=== PATIENT | female | born 1980 | race Caucasian/White ===

== ENCOUNTER 2020-10-06 13:26 | Outpatient (REF) | payer MEDICAID, SELFPAY | END 2020-10-06 13:27 | disposition home or self-care (01) | LOC: HO.LAB 13:26 | PROVIDERS: Visit Provider Internal Medicine | DX: Z20.822 Contact with and (suspected) exposure to COVID-19 (principal) | CPT/HCPCS: 36415; C9803; U0003; U0005 ==

== ENCOUNTER 2021-11-14 18:48 | Emergency (ER) | payer MEDICAID, SELFPAY ==
[2021-11-14 18:51] VITALS: BP 145/99; PULSE 98; RESP 18; TEMP 36.4; O2SAT 100; BMI 17.4
--- NOTE | 2021-11-14 19:16 | ED.BACK ---
HPI - Back Pain/Injury General Chief Complaint: Back Pain/Injury Stated Complaint: Back injury Time Seen by Provider: 11/14/21 19:16 Source: patient Mode of arrival: ambulatory Limitations: no limitations History of Present Illness HPI Narrative: Patient is a 41 year old female presenting to the emergency department today with low back pain. Patient states that she lifted something heavy last Tuesday night and has been having pain in her low back that radiates into her right leg ever since. Patient denies any dizziness, lightheadedness, abdominal pain, nausea, vomiting, fever, chills, blurry vision, double vision, loss of vision, chest pain, difficulty breathing, shortness of breath, night sweats, pain with urination, increased urinary frequency, increased urinary urgency, blood in her urine or stool, syncope or a near syncopal episode, recent trauma or falls, bowel incontinence, bladder incontinence, bowel retention, bladder retention, or any other complaints at this time. MD elicited complaint: back pain Onset (ago): day(s) Timing: constant Severity: mild Pain scale (0-10): 4 Similar Symptoms Previously: No Quality: dull Location: lumbar spine Exacerbating factors: none Relieving factors: none Context: while lifting Associated symptoms: denies other symptoms Work related injury: No Related Data Previous Rx's Medication Instructions Recorded cyclobenzaprine 10 mg tablet 10 mg PO TID PRN 7 Days #21 tab 11/14/21 naproxen 500 mg tablet 500 mg PO BID PRN #14 tab 11/14/21 Allergies Allergy/AdvReac Type Severity Reaction Status Date / Time bees Allergy Unknown Uncoded 03/10/18 00:00 Benadryl Allergy Unknown Uncoded 03/10/18 00:00 Review of Systems Constitutional: Constitutional: Reports no additional constitutional complaints, Denies chills, Denies fever(s) and Denies night sweats Eyes: Eyes: Reports no additional eye complaints, Denies blurry vision, Denies change in vision, Denies diplopia, Denies eye discharge, Denies loss of vision and Denies eye pain ENT: Denies dizziness Cardiovascular: Cardiovascular: Reports no additional cardiovascular complaints, Denies chest pain, Denies lightheadedness, Denies Loss of Consciousness and Denies dyspnea Respiratory: Respiratory: Reports no additional respiratory complaints and Denies dyspnea Gastrointestinal: Gastrointestinal: Reports no additional gastrointestinal complaints, Denies abdominal pain, Denies melena, Denies hematochezia, Denies change in bowel habits and Denies change in stool character Genitourinary: Genitourinary: Denies hematuria, Denies urinary frequency, Denies dysuria, Denies urinary incontinence, Denies urinary hesitancy and Denies urinary urgency Musculoskeletal: Musculoskeletal: Reports no additional musculoskeletal complaints, Reports back pain, Denies numbness and Denies tingling Neurologic: Denies dizziness, Denies loss of vision, Denies numbness and Denies tingling Psychiatric: Psychiatric: Reports no additional psychiatric complaints Endocrine: Endocrine: Reports no additional endocrine complaints Hematologic/Lymphatic: Hematologic/Lymphatic: Reports no additional hematologic/lymphatic complaints Allergic/Immunologic: Allergic/Immunologic: Reports no additional allergic/immunologic complaints PMFSH Past Medical History Attestation statement: The following information was validated with the patient. Source: old records reviewed Social History Social History Advance Directives: No Advance Directives Information Provided: No Patient : No Physical Exam Vital Signs: Vital Signs: Last Vital Signs Temp 97.5 F 11/14/21 18:51 Pulse 98 11/14/21 18:51 Resp 18 11/14/21 18:51 BP 145/99 H 11/14/21 18:51 Pulse Ox 100 11/14/21 18:51 BMI result Body Mass Index 17.4 Const: General: cooperative, no acute distress, alert and awake Nutritional Appearance: well nourished Orientation/consciousness: patient oriented x3 Limitations: no limitations HEENT: Head: Yes normal to inspection and Yes atraumatic Ears: hearing grossly normal bilaterally and external ears normal General nose exam: Normal external nose present, no nasal discharge noted and no epistaxis Face and sinus: Yes normal facial exam, No abrasion and No laceration Mouth: Normal oral and palatal mucosa present, no drooling and no muffled voice Eyes: General: appearance normal, both eyes and all related structures Periorbital: periorbital findings normal Eyelids: Yes eyelids normal Conjunctivae: conjunctivae normal Pupils: Equal, round and reactive pupils present EOM: EOMs intact bilaterally Neck: Neck: Yes normal visual inspection, Yes full ROM and Yes no lymphadenopathy Chest: Chest palpation & inspection: normal inspection of the chest Resp: Effort & Inspection: normal respiratory effort and able to speak in complete sentences Auscultation: clear to auscultation bilaterally Cardio: Rate: regular rate Rhythm: regular rhythm GI: Inspection: Yes normal to inspection : General: Yes no CVA tenderness Back/Spine/Pelvis: Back: no CVA tenderness Cervical Spine: normal cervical lordosis and cervical ROM normal Thoracic/Lumbar Spine: thoracic and lumbar spine normal to inspection and thoraco-lumbar ROM normal Pelvis: no pain with anterior-posterior compression and no pain with lateral compression Neuro: General: patient oriented x3 and moves all extremities Cranial nerves: Yes Equal, round and reactive pupils present Cognition (Neuro): normal cognition Motor exam (neuro): 5/5 motor strength present throughout Sensory Exam: Normal double simultaneous stimulation for sensation Coordination: [id number] test normal Extrem: General: Yes normal to inspection, Yes full ROM and Yes capillary refill normal Psych: Appearance: grossly normal Mental Status: mental status grossly normal Affect: normal affect Attitude: cooperative Thought process: Normal thought process present Thought content: Normal thought content present Insight: Good insight present (Psych) MDM - Back Pain/Injury MDM Narrative Medical decision making narrative: Patient is a 41 year old female presenting to the emergency department today with low back pain. Patient's physical exam was unremarkable. I explained my physical exam findings to the patient. I answered all questions asked by the patient. Patient received PO Flexeril and IM Toradol which she stated helped her symptoms significantly. I stressed the importance of the patient taking her medication as prescribed. I stressed the importance of the patient following up with her primary care provider. I stressed the importance of the patient returning to the emergency department immediately if her symptoms were to worsen or if she were to develop any dizziness, shortness of breath, difficulty breathing, chest pain, blurry vision, loss of vision, nausea, vomiting, abdominal pain, fever, chills, back pain, or any other complaints. Patient verbalized agreement and understanding with this treatment plan and discharge. Differential Diagnosis Differential diagnosis: Likely lumbar radiculopathy, sciatica and strain of lumbar region Medical Records Attestation: I reviewed the patient's medical records. Discharge Plan Discharge Clinical Impression: Strain of lumbar region Patient Disposition: Home, Self-Care Instructions: Acute Low Back Pain (ED) Additional Instructions: Follow up with your primary care provider. Return to the emergency department immediately if your symptoms worsen or if you develop any dizziness, shortness of breath, difficulty breathing, chest pain, blurry vision, loss of vision, nausea, vomiting, abdominal pain, fever, chills, back pain, or any other complaints. Prescriptions: New cyclobenzaprine 10 mg tablet 10 mg PO TID PRN (Reason: muscle spasm) 7 Days Qty: 21 0RF naproxen 500 mg tablet 500 mg PO BID PRN (Reason: pain) Qty: 14 0RF [place] [facility] [place] [facility] [place] [facility] [place]] [facility] [place] [facility] [place]] Stand Alone Forms: Work/School Release Interventions: ED Discharge Assessment Last Done: 11/14/21 19:47 Print Language: [place] Islander
[2021-11-14] MEDS: Cyclobenzaprine HCl 10 MG TABLET PO (19:39)
[2021-11-14] MEDS: Ketorolac Tromethamine 30 MG/ML VIAL IM (19:39)
== END 2021-11-14 19:49 | disposition home or self-care (01) ==
PROVIDERS: Emergency Provider Emergency Medicine Emergency Medical Services; PCP Internal Medicine Nephrology
DX: S39.012A Strain of muscle, fascia and tendon of lower back, initial encounter (principal); X50.0XXA Overexertion from strenuous movement or load, initial encounter; Y93.9 Activity, unspecified; Y92.9 Unspecified place or not applicable; Y99.9 Unspecified external cause status; Z79.899 Other long term (current) drug therapy
CPT/HCPCS: 96372; 99284; J1885

== ENCOUNTER 2021-12-04 17:25 | Emergency (ER) | payer MEDICAID, SELFPAY ==
[2021-12-04 17:35] VITALS: BP 127/80; PULSE 98; RESP 19; TEMP 36.6; O2SAT 100; BMI 17.9
--- NOTE | 2021-12-04 18:03 | ED_ITS ---
HPI - General Adult General Chief complaint: Back Pain/Injury Stated complaint: back INJ/work related Time Seen by Provider: 12/04/21 18:03 Source: patient Mode of arrival: ambulatory Limitations: no limitations History of Present Illness HPI narrative: Patient is a 41 year old female presenting to the emergency department today with right sided low back pain that radiates down her right leg. Patient states that that she was seen here a month ago for this, given medication that made it better, and then she went back to work and it got worse. 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 Patient states that she was sent here from the urgent care for an MRI. Patient denies any dizziness, lightheadedness, abdominal pain, nausea, vomiting, fever, chills, blurry vision, double vision, loss of vision, chest pain, difficulty breathing, shortness of breath, night sweats, pain with urination, increased urinary frequency, increased urinary urgency, blood in her urine or stool, syncope or a near syncopal episode, recent trauma or falls, bowel incontinence, bladder incontinence, bowel retention, bladder retention, or any other complaints at this time. Onset (ago): day(s) Location: back Radiation: extremity Severity: mild Severity scale (1-10): 4 Quality: dull Pain Consistency: intermittent Relieving factors: none Exacerbating factors: none Associated symptoms: denies other symptoms Treatments prior to arrival: none Related Data Previous Rx's Medication Instructions Recorded cyclobenzaprine 10 mg tablet 10 mg PO TID PRN 7 Days #21 tab 11/14/21 naproxen 500 mg tablet 500 mg PO BID PRN #14 tab 11/14/21 cyclobenzaprine 10 mg tablet 10 mg PO TID PRN 7 Days #21 tab 12/04/21 Allergies Allergy/AdvReac Type Severity Reaction Status Date / Time bees Allergy Unknown Uncoded 03/10/18 00:00 Benadryl Allergy Unknown Uncoded 03/10/18 00:00 Review of Systems Constitutional: Constitutional: Reports no additional constitutional complaints, Denies chills, Denies fever(s) and Denies night sweats Eyes: Eyes: Reports no additional eye complaints, Denies blurry vision, Denies change in vision, Denies diplopia, Denies eye discharge, Denies loss of vision and Denies eye pain ENT: Denies dizziness Cardiovascular: Cardiovascular: Reports no additional cardiovascular complaints, Denies chest pain, Denies lightheadedness, Denies Loss of Consciousness and Denies dyspnea Respiratory: Respiratory: Reports no additional respiratory complaints and Denies dyspnea Gastrointestinal: Gastrointestinal: Reports no additional gastrointestinal complaints, Denies abdominal pain, Denies melena, Denies hematochezia, Denies change in bowel habits and Denies change in stool character Genitourinary: Genitourinary: Denies hematuria, Denies urinary frequency, Denies dysuria, Denies urinary incontinence, Denies urinary hesitancy and Denies urinary urgency Musculoskeletal: Musculoskeletal: Reports no additional musculoskeletal complaints, Reports back pain, Denies numbness and Denies tingling Neurologic: Denies dizziness, Denies loss of vision, Denies numbness and Denies tingling Psychiatric: Psychiatric: Reports no additional psychiatric complaints Endocrine: Endocrine: Reports no additional endocrine complaints Hematologic/Lymphatic: Hematologic/Lymphatic: Reports no additional hematologic/lymphatic complaints Allergic/Immunologic: Allergic/Immunologic: Reports no additional allergic/immunologic complaints [facility] Past Medical History Attestation statement: The following information was validated with the patient. Source: old records reviewed Social History Social History Advance Directives: No Advance Directives Information Provided: No Physical Exam ED Vital Signs: Vital Signs - 24 hr 12/04/21 17:35 Temperature 98 F Pulse Rate 98 Respiratory Rate 19 Blood Pressure 127/80 Pulse Oximetry 100 BMI result Body Mass Index 17.9 Const General: cooperative, no acute distress, alert and awake Nutritional Appearance: well nourished Orientation/consciousness: patient oriented x3 Limitations: no limitations [facility] Head: Yes normal to inspection and Yes atraumatic Ears: hearing grossly normal bilaterally and external ears normal General nose exam: Normal external nose present, no nasal discharge noted and no epistaxis Face and sinus: Yes normal facial exam, No abrasion and No laceration Mouth: Normal oral and palatal mucosa present, no drooling and no muffled voice Eyes General: appearance normal, both eyes and all related structures Periorbital: periorbital findings normal Eyelids: Yes eyelids normal Conjunctivae: conjunctivae normal Pupils: Equal, round and reactive pupils present EOM: EOMs intact bilaterally Neck Neck: Yes normal visual inspection, Yes full ROM and Yes no lymphadenopathy Chest Chest palpation & inspection: normal inspection of the chest Resp Effort & Inspection: normal respiratory effort and able to speak in complete sentences Auscultation: clear to auscultation bilaterally Cardio Rate: regular rate Rhythm: regular rhythm GI Inspection: Yes normal to inspection General: Yes no CVA tenderness Back/Spine/Pelvis Back: no CVA tenderness Cervical Spine: normal cervical lordosis and cervical ROM normal Thoracic/Lumbar Spine: thoracic and lumbar spine normal to inspection and thoraco-lumbar ROM normal Pelvis: no pain with anterior-posterior compression Neuro General: patient oriented x3 and moves all extremities Cranial nerves: Yes Equal, round and reactive pupils present Cognition (Neuro): normal cognition Motor exam (neuro): 5/5 motor strength present throughout Sensory Exam: Normal double simultaneous stimulation for sensation Coordination: [id number] test normal Extrem General: Yes normal to inspection, Yes full ROM and Yes capillary refill normal Psych Appearance: grossly normal Mental Status: mental status grossly normal Affect: normal affect Attitude: cooperative Thought process: Normal thought process present Thought content: Normal thought content present Insight: Good insight present (Psych) Medical Decision Making [facility] Narrative Medical decision making narrative: Patient is a 41 year old female presenting to the emergency department today with back pain. Patient's physical exam was unremarkable. I explained my physical exam findings to the patient. I answered all questions asked by the patient. I explained to the patient that we do not do routine MRIs in the emergency department and that she needs to follow up with orthopedics. Patient received IM Toradol and PO Flexeril which she stated helped her symptoms significantly. I stressed the importance of the patient taking her medication as prescribed. I stressed the importance of the patient following up with her primary care provider and an orthopedist. I stressed the importance of the patient returning to the emergency department immediately if her symptoms were to worsen or if she were to develop any dizziness, shortness of breath, difficulty breathing, chest pain, blurry vision, loss of vision, nausea, vomiting, abdominal pain, fever, chills, back pain, or any other complaints. Patient verbalized agreement and understanding with this treatment plan and discharge. Differential Diagnosis Differential Diagnosis: sciatica Medical Records Medical records reviewed: Yes I reviewed the patient's medical records. Discharge Plan Discharge Clinical Impression: Sciatica Patient Disposition: Home, Self-Care Instructions: Back Pain (ED) Additional Instructions: Follow up with your primary care provider. Return to the emergency department immediately if your symptoms worsen or if you develop any dizziness, shortness of breath, difficulty breathing, chest pain, blurry vision, loss of vision, nausea, vomiting, abdominal pain, fever, chills, back pain, or any other complaints. Prescriptions: New cyclobenzaprine 10 mg tablet 10 mg PO TID PRN (Reason: muscle spasm) 7 Days Qty: 21 0RF No Action cyclobenzaprine 10 mg tablet 10 mg PO TID PRN (Reason: muscle spasm) 7 Days Qty: 21 0RF naproxen 500 mg tablet 500 mg PO BID PRN (Reason: pain) Qty: 14 0RF Ref[place]: [facility] [place] [facility] [Provider Group] (Follow up with an orthopedic provider. ) Stand Alone Forms: Work/School Release Interventions: ED Discharge Assessment Last Done: 12/04/21 18:56 Discharge Date/Time: 12/04/21 18:57 Print Language: [place]
[2021-12-04] MEDS: Ketorolac Tromethamine 15 MG/ML VIAL IM (18:51)
[2021-12-04] MEDS: Cyclobenzaprine HCl 10 MG TABLET PO (18:52)
== END 2021-12-04 18:57 | disposition home or self-care (01) ==
PROVIDERS: Emergency Provider Internal Medicine; PCP Internal Medicine Medical Oncology
DX: M54.41 Lumbago with sciatica, right side (principal)
CPT/HCPCS: 96372; 99282; 99284; J1885

== ENCOUNTER 2022-01-04 18:52 | Emergency (ER) | payer MEDICAID, SELFPAY ==
[2022-01-04 19:00] VITALS: BP 128/70; PULSE 100; O2SAT 97
--- NOTE | 2022-01-04 19:04 | ED_ITS ---
HPI - Overdose General Chief Complaint: Overdose Stated Complaint: FOUND UNRESP IN CAR, NARCAN GIVEN W/GOOD RESULT Time Seen by Provider: 01/04/22 19:04 Source: patient and EMS Mode of arrival: EMS Limitations: no limitations History of Present Illness HPI Narrative: This is a 41-year-old female history of opiate use disorder presenting to the emergency department with concerns of an unintentional opiate overdose. Patient tells me that she started a recovery program 5 years ago, she last relapsed June 2021, she tells me today was an accidental overdose, reports using 1 bag of IV heroin. Patient tells me that she has been having a lot of significant life stressors, today is the 1 year anniversary of 1 of her family members dying, she tells me in 6 days it is the end ever see of another family member dying. She also reports that last week she was told she should receive testing to make sure that she does not have lung cancer. Patient tells me that she feels like all this triggered her to use. She tells me she has no desire to use anymore. In fact, she tells me she would like to go to [place] for a meeting [facility] for detox. She tells me she goes to these meetings often instead she did relapse today she would like to go because this is her support system. Patient also tells me that she is close with her sister who is here and can take patient home. She was given 4 mg of intranasal Narcan by EMS. Denies SI and HI. Tells me she has a slight headache which she always gets after she receives Narcan. No other medical complaints at this time. Denies chest pain, shortness of breath, nausea, vomiting, vision changes, dizziness, weakness. At this time she does not want to me with the care team in have a substance use disorder evaluation, patient detox he tells me that she good resources in the community and she is currently involved with detox. MD complaint: accidental overdose Onset (ago): hour(s) (1) Timing confirmed by: other (EMS) Related Data Previous Rx's Medication Instructions Recorded cyclobenzaprine 10 mg tablet 10 mg PO TID PRN muscle spasm 7 11/14/21 days #21 tabs naproxen 500 mg tablet 500 mg PO BID PRN pain #14 tabs 11/14/21 cyclobenzaprine 10 mg tablet 10 mg PO TID PRN muscle spasm 7 12/04/21 days #21 tabs naloxone 4 mg/actuation nasal 4 mg intranasal Q2M PRN opioid 01/04/22 spray (Narcan) overdose #2 ea Allergies Allergy/AdvReac Type Severity Reaction Status Date / Time bees Allergy Unknown Uncoded 03/10/18 00:00 Benadryl Allergy Unknown Uncoded 03/10/18 00:00 Review of Systems Review of Systems: Constitutional : No Fever, No Chills ENT/Mouth : No sore throat, No Rhinorrhea Eyes: No Eye Pain, No Swelling, No Redness Cardiovascular : No Chest Pain, No SOB Respiratory : No Cough, No Sputum Gastrointestinal : No Nausea, No Vomiting, No Diarrhea, No abdominal Pain Genitourinary : No Dysuria, No Hematuria Musculoskeletal : No joint pain, No Myalgias, No Joint Swelling Skin : No Skin Lesions, No rash Neuro : No Weakness, No Numbness, + headache Psych : No Anxiety, No Depression, No SI/HI/AH/VH Heme/Lymph: No Bruising, No Bleeding Endocrine : No Polyuria, No Polydipsia All other systems reviewed and are negative Yes all other systems are reviewed and are negative [facility] Past Medical History Attestation statement: The following information was validated with the patient. Source: old records reviewed and nursing notes reviewed Social History Social History Alcohol intake: former Patient Tobacco Use Status: Current everyday Tobacco user Smoked in Last 30 Days: Yes Use of substances other than those prescribed or required for medical reasons: Yes Substance Use Type: Crack/Cocaine and Heroin Last Used Substance: Hours (ago) Advance Directives: No Advance Directives Information Provided: No Patient : No Physical Exam Vital Signs: Vital Signs: Last Vital Signs Temp 98.2 F 01/04/22 19:52 Pulse 91 01/04/22 19:52 Resp 14 01/04/22 19:52 BP 144/83 H 01/04/22 19:52 Pulse Ox 100 01/04/22 19:52 O2 Del Method 01/04/22 19:52 BMI result Body Mass Index 18.6 VSS Appearance: Alert.? Oriented X3.? No acute distress.? Head: Normocephalic, atraumatic, no step-offs or deformities Eyes: Pupils equal, round and reactive to light.? ENT: Pharynx normal.? Neck: Normal inspection.? Neck supple.? CVS: Normal heart rate and rhythm.? Pulses normal.? Respiratory: No respiratory distress.? Breath sounds normal.? Abdomen: Soft and nontender.? Skin: Skin warm and dry.? Normal skin color.? Normal skin turgor.? Extremities: No lower extremity edema.? No calf ttp. 5/5 strength to bilateral upper and lower extremities Back: No midline tenderness, no C-spine tenderness, full range of motion, no CVA tenderness bilaterally Neuro: Oriented X 3.? No motor deficit.? No sensory deficit. CN 2-12 intact. Steady tandem gait with normal coordination. Course Reevaluation(s) Reevaluation #1: Urine positive for opiates, fentanyl, amphetamines, cocaine and marijuana. Patient awake, alert and oriented x4, ambulating with steady gait. Stable vital signs. Patient does not want to speak to care team, no medical complaints. Was given something for her headache. At this time patient will be discharged, patient tells me she is going to recovery group meeting today. Time: 20:09 MDM - Overdose [facility] Narrative Medical decision making narrative: 1911 41-year-old female presents with unintentional opiate overdose, patient was clean for a while and relapsed today, reports a lot of significant life stressors. Denies SI HI. Looking to go to a detox meeting [facility] at [facility]. Patient received 4 mg of intranasal Narcan via. Physical examination benign. Pleasant 41-year-old female. Regular rate and rhythm. Lungs clear. Abdomen soft nontender nondistended. Plan at this time is [facility] and observation. Medical Records Attestation: I reviewed the patient's medical records. Lab Data Attestation: I reviewed the patient's lab results. Critical Care Time Critical Care Time Critical Care Time: No Discharge Plan Discharge Clinical Impression: Opiate overdose, Polysubstance abuse Patient Disposition: Home, Self-Care Instructions: Naloxone (Into the nose) Additional Instructions: Take your medications as prescribed. If you were prescribed antibiotics today, it is important that you take your medication to their entirety, do not skip any doses, do not finish them early. Follow-up with your primary care provider this week. Please go to your recovery group bruna. Follow-up with the behavioral health team. Return to the emergency department with new or worsening symptoms. Such as fevers, chills, chest pain, shortness of breath, nausea, vomiting, dizziness, headache, vision changes, lethargy, anxiety, depression, suicidal ideation, homicidal ideation. In case of emergency call 911 Your urine was positive for opiates, fentanyl, amphetamines, cocaine, marijuana. Prescriptions: New naloxone [Narcan] 4 mg/actuation spray,non-aerosol 4 mg intranasal Q2M PRN (Reason: opioid overdose) Qty: 2 0RF Rx Instructions: spray 1 dose into ONE nostril; alternate nostrils w each dose until help arrives No Action cyclobenzaprine 10 mg tablet 10 mg PO TID PRN (Reason: muscle spasm) 7 Days Qty: 21 0RF naproxen 500 mg tablet 500 mg PO BID PRN (Reason: pain) Qty: 14 0RF cyclobenzaprine 10 mg tablet 10 mg PO TID PRN (Reason: muscle spasm) 7 Days Qty: 21 0RF [facility]Provider Group[facility] - 2 days America Sky MD [Primary Care Provider] - 2 days
[2022-01-04 19:25] VITALS: BP 140/81; PULSE 93; RESP 16; TEMP 36.7; O2SAT 100; BMI 18.6
[2022-01-04 19:52] VITALS: BP 144/83; PULSE 91; RESP 14; TEMP 36.8; O2SAT 100
[2022-01-04] MEDS: Acetaminophen 325 MG TABLET 650 MG PO (19:59)
--- NOTE | 2022-01-04 20:02 | PC.NURSE ---
medicated per provider order.
[2022-01-04 20:08] LABS: Amphetamine Screen Urine POSITIVE (Not Detect); Barbiturates, Urine Not Detected (Not Detect); Benzodiazepines Screen Urine Not Detected (Not Detect); Cannabinoid Screen Urine POSITIVE (Not Detect); Cocaine Screen Urine POSITIVE (Not Detect); Fentanyl, urine POSITIVE (Not Detect); Opiate Screen Urine POSITIVE (Not Detect); Phencyclidine Screen Urine Not Detected (Not Detect)
== END 2022-01-04 20:38 | disposition home or self-care (01) ==
PROVIDERS: Physician Assistant; Emergency Provider Internal Medicine; PCP Internal Medicine Medical Oncology
DX: T40.1X1A Poisoning by heroin, accidental (unintentional), initial encounter (principal); F19.10 Other psychoactive substance abuse, uncomplicated; Y92.810 Car as the place of occurrence of the external cause
CPT/HCPCS: 80307; 99284

== ENCOUNTER 2023-01-31 20:07 | Emergency (ER) | payer MEDICAID, SELFPAY ==
[2023-01-31 20:12] VITALS: BP 150/94; BP 158/62; PULSE 110; PULSE 113; RESP 20; TEMP 37.1; O2SAT 95; O2SAT 97; BMI 17.7
--- NOTE | 2023-01-31 20:26 | PC.NURSE ---
Assumed care of pt. Pt stand and pivot to stretcher with no difficulties. Pt very restless, unable to sit still for most of exam. Able to be redirected. MD Hodges made aware. Preparing for IV and medications.
--- NOTE | 2023-01-31 20:30 | ED_ITS ---
HPI - Alcohol General Chief Complaint: ETOH/Substance Use Stated Complaint: ETOH Time Seen by Provider: 01/31/23 20:28 Source: patient Mode of arrival: ambulatory Limitations: no limitations History of Present Illness HPI narrative: Patient alcoholic been drinking heavily lately did not take her medication for last 5 days dad 2 days ago and since then been drinking heavily drink was earlier today want to stop drinking patient feel depressed tearful in the ER denied any SI Related Data Home Medications Medication Instructions Recorded Confirmed diazepam 5 mg tablet 5 mg PO BID 01/31/23 01/31/23 lisdexamfetamine 60 mg capsule 60 mg PO QAM 01/31/23 01/31/23 (Vyvanse) lorazepam 0.5 mg tablet 0.5 - 1 mg PO DAILY PRN Anxiety 01/31/23 01/31/23 meloxicam 15 mg tablet mg PO 01/31/23 naltrexone 50 mg tablet 50 mg PO DAILY PRN Restless Leg(S) 01/31/23 01/31/23 oxcarbazepine 300 mg tablet 300 mg PO BID 01/31/23 01/31/23 pregabalin 100 mg capsule 100 mg PO BID 01/31/23 01/31/23 vortioxetine 5 mg tablet 5 mg PO QAM 01/31/23 01/31/23 (Trintellix) Previous Rx's Medication Instructions Recorded cyclobenzaprine 10 mg tablet 10 mg PO TID PRN muscle spasm 7 11/14/21 days #21 tabs cyclobenzaprine 10 mg tablet 10 mg PO TID PRN muscle spasm 7 12/04/21 days #21 tabs naloxone 4 mg/actuation nasal 4 mg intranasal Q2M PRN opioid 01/04/22 spray (Narcan) overdose #2 ea Allergies Allergy/AdvReac Type Severity Reaction Status Date / Time bees Allergy Unknown Uncoded 03/10/18 00:00 Benadryl Allergy Unknown Uncoded 03/10/18 00:00 Review of Systems Review of Systems: Yes all other systems are reviewed and are negative [facility] Social History Social History Alcohol intake: current Alcohol intake frequency: 3 or more drinks per day Alcohol type: hard liquor Patient Tobacco Use Status: Current everyday Tobacco user Smoked in Last 30 Days: Yes Use of substances other than those prescribed or required for medical reasons: Yes Substance Use Type: Heroin Substance Use Frequency: Occasionally Advance Directives: No Advance Directives Information Provided: No Patient : No Physical Exam ED Vital Signs: Vital Signs - 24 hr 01/31/23 20:12 01/31/23 22:23 02/01/23 00:59 Temperature 98.7 F 98.7 F 97.8 F Pulse Rate 113 H 90 93 Respiratory Rate 20 18 18 Blood Pressure 150/94 H 129/87 149/90 H Pulse Oximetry 95 99 97 Oxygen Delivery Method Room Air Room Air Room Air BMI result Body Mass Index 17.7 Appearance: Alert. Oriented X3. No acute distress. Tearful etoh+ anxious Eyes: PERRLA, No Nystagmus ENT: Pharynx normal. Oral Mucosa moist Neck: Normal inspection. Neck supple. CVS: Normal heart rate and rhythm. Pulses normal. Respiratory: No respiratory distress. Equal air entry bilateral, no wheezing/rales/rhonchi Abdomen: Soft and nontender. Bowel sounds are present, no mass palpable, no CVA tenderness Skin: Skin warm and dry. Normal skin color. Normal skin turgor. Extremities: No lower extremity edema. No calf tenderness psych: Tearful depressed no SI no hallucinations or delusions Neuro: Oriented X 3. No motor deficit. No sensory deficit.No cerebellar signs , cranial nerves II-XII intact Medical Decision Making Medical Decision Making MDM Narrative: Patient depression with alcohol abuse will get care team involved for detox placed/dual diagnose Lab Data MDM Lab Attestation statement: I reviewed the patient's lab results. 01/31/23 20:32 01/31/23 20:32 Labs: Lab Results 01/31/23 01/31/23 01/31/23 Range/Units 20:32 20:32 20:32 WBC 7.9 (4.8-10.8) X10*3/uL RBC 4.34 (4.20-5.50) X10*6/uL Hgb 13.7 (12.0-16.0) g/dl Hct 38.0 (37.0-47.0) % MCV 87.6 (80.0-98.0) fL MCH 31.6 (27.0-33.0) pg MCHC 36.1 H (31.0-35.0) g/dl RDW 12.4 (11.0-16.0) % Plt Count 300 (160-400) X10*3/uL MPV 9.8 (9.4-12.3) fL Immature Gran % (Auto) 0.1 (0.0-0.4) % Neut % (Auto) 65.8 (45-73) % Lymph % (Auto) 30.0 (20-40) % Rosebud % (Auto) 3.8 (2-11) % Eos % (Auto) 0.0 (0-4) % Baso % (Auto) 0.3 (0-2) % Lymph # (Auto) 2.4 (1.2-4.9) X10*3/uL Rosebud # (Auto) 0.3 (0.1-1.2) X10*3/uL Eos # (Auto) 0.0 (0.0-0.4) X10*3/uL Baso # (Auto) 0.0 (0.0-0.2) X10*3/uL Abs Immat Gran (auto) 0.01 (0.00-0.03) X10*3/uL Absolute Neuts (auto) 5.2 (2.0-8.3) x10*3/uL Absolute Nucleated RBC 0.000 (0.0-0.012) X10*3/uL Nucleated RBC % (auto) 0.0 (0.0-0.2) /100WBC PT 10.2 (10.0-13.1) SEC INR 0.9 (0.9-1.1) Sodium 144 (135-145) mmol/L Potassium 3.7 (3.3-5.1) mmol/L Chloride 103 (96-108) mmol/L Carbon Dioxide 22 (22-29) mmol/L Anion Gap 23 H (12-20) BUN 28 H (9-16) mg/dL Creatinine 0.66 (0.5-1.4) mg/dL Estim Creat Clear Calc 96.0 Estimated GFR > 60 Random Glucose 101 (60-115) mg/dL Calcium 9.5 (8.4-10.2) mg/dL Magnesium 1.9 (1.6-2.6) mg/dL Total Bilirubin 0.6 (0.0-1.0) mg/dL AST 53 H (5-31) U/L ALT 24 (0-31) U/L Alkaline Phosphatase 88 (39-117) U/L Total Protein 7.2 (6.5-8.0) g/dL Albumin 4.3 (3.5-5.0) g/dL Urine Opiates Screen (Not Detect) Urine Fentanyl Screen (Not Detect) Ur Barbiturates Screen (Not Detect) Ur Phencyclidine Scrn (Not Detect) Ur Amphetamines Screen (Not Detect) U Benzodiazepines Scrn (Not Detect) Urine Cocaine Screen (Not Detect) U Marijuana (THC) Screen (Not Detect) Ethyl Alcohol 297 mg/dL 01/31/23 Range/Units 21:07 WBC (4.8-10.8) X10*3/uL RBC (4.20-5.50) X10*6/uL Hgb (12.0-16.0) g/dl Hct (37.0-47.0) % MCV (80.0-98.0) fL MCH (27.0-33.0) pg MCHC (31.0-35.0) g/dl RDW (11.0-16.0) % Plt Count (160-400) X10*3/uL MPV (9.4-12.3) fL Immature Gran % (Auto) (0.0-0.4) % Neut % (Auto) (45-73) % Lymph % (Auto) (20-40) % Rosebud % (Auto) (2-11) % Eos % (Auto) (0-4) % Baso % (Auto) (0-2) % Lymph # (Auto) (1.2-4.9) X10*3/uL Rosebud # (Auto) (0.1-1.2) X10*3/uL Eos # (Auto) (0.0-0.4) X10*3/uL Baso # (Auto) (0.0-0.2) X10*3/uL Abs Immat Gran (auto) (0.00-0.03) X10*3/uL Absolute Neuts (auto) (2.0-8.3) x10*3/uL Absolute Nucleated RBC (0.0-0.012) X10*3/uL Nucleated RBC % (auto) (0.0-0.2) /100WBC PT (10.0-13.1) SEC INR (0.9-1.1) Sodium (135-145) mmol/L Potassium (3.3-5.1) mmol/L Chloride (96-108) mmol/L Carbon Dioxide (22-29) mmol/L Anion Gap (12-20) BUN (9-16) mg/dL Creatinine (0.5-1.4) mg/dL Estim Creat Clear Calc Estimated GFR Random Glucose (60-115) mg/dL Calcium (8.4-10.2) mg/dL Magnesium (1.6-2.6) mg/dL Total Bilirubin (0.0-1.0) mg/dL AST (5-31) U/L ALT (0-31) U/L Alkaline Phosphatase (39-117) U/L Total Protein (6.5-8.0) g/dL Albumin (3.5-5.0) g/dL Urine Opiates Screen Not Detected (Not Detect) Urine Fentanyl Screen Not Detected (Not Detect) Ur Barbiturates Screen Not Detected (Not Detect) Ur Phencyclidine Scrn Not Detected (Not Detect) Ur Amphetamines Screen Not Detected (Not Detect) U Benzodiazepines Scrn POSITIVE H (Not Detect) Urine Cocaine Screen Not Detected (Not Detect) U Marijuana (THC) Screen POSITIVE H (Not Detect) Ethyl Alcohol mg/dL Medications Administered Generic Name Dose Route Start Last Admin Trade Name Freq PRN Reason Stop Dose Admin Cyclobenzaprine HCl 10 mg 01/31/23 23:35 02/01/23 00:04 Cyclobenzaprine Hcl 10 Mg Tablet PO 10 mg TID PRN Administration muscle spasm Lorazepam 2 mg 01/31/23 20:28 01/31/23 23:32 Lorazepam 2 Mg/Ml Vial IVPUSH 2 mg RQ4H WHILE AWAKE PRN Administration Alcohol Withdrawal Naltrexone HCl 50 mg 01/31/23 23:35 02/01/23 00:04 Naltrexone Hcl 50 Mg Tablet PO 50 mg DAILY PRN Administration Restless Leg(S) Oxcarbazepine 300 mg 01/31/23 23:45 02/01/23 00:04 Oxcarbazepine 300 Mg Tablet PO 300 mg BID BRINDA Administration Pregabalin 100 mg 01/31/23 23:45 02/01/23 00:04 Pregabalin 100 Mg Capsule PO 100 mg BID BRINDA Administration Discontinued Medications Generic Name Dose Route Start Last Admin Trade Name Freq PRN Reason Stop Dose Admin Sodium Chloride 1,000 mls @ 999 mls/hr 01/31/23 20:28 01/31/23 21:40 Ns IV 01/31/23 21:28 Infused .Q1H1M ONE Infusion Discharge Plan Discharge Clinical Impression: Alcoholic intoxication, Major depression Patient Disposition: Still a Patient Prescriptions: No Action cyclobenzaprine 10 mg tablet 10 mg PO TID PRN (Reason: muscle spasm) 7 Days Qty: 21 0RF cyclobenzaprine 10 mg tablet 10 mg PO TID PRN (Reason: muscle spasm) 7 Days Qty: 21 0RF naloxone [Narcan] 4 mg/actuation spray,non-aerosol 4 mg intranasal Q2M PRN (Reason: opioid overdose) Qty: 2 0RF Rx Instructions: spray 1 dose into ONE nostril; alternate nostrils w each dose until help arrives meloxicam 15 mg tablet PO naltrexone 50 mg tablet 50 mg PO DAILY PRN (Reason: Restless Leg(S)) oxcarbazepine 300 mg tablet 300 mg PO BID lorazepam 0.5 mg tablet 0.5 - 1 mg PO DAILY PRN (Reason: Anxiety) diazepam 5 mg tablet 5 mg PO BID pregabalin 100 mg capsule 100 mg PO BID Vyvanse 60 mg capsule 60 mg PO QAM Trintellix 5 mg tablet 5 mg PO QAM
[2023-01-31] MEDS: LORazepam 2 MG/ML VIAL IVPUSH ×2 (20:37→23:32)
[2023-01-31] MEDS: 0.9 % Sodium Chloride 1,000 ML 999 ML IV (20:37)
[2023-01-31 20:43] LABS: MANUAL DIFF FLAG NO
[2023-01-31 20:49] LABS: Basophils Percent Auto 0.3 % (0-2); Hemoglobin 13.7 g/dl (12.0-16.0); Imm Gran Abs Auto 0.01 X10*3/uL (0.00-0.03); Imm Gran Pct Auto 0.1 % (0.0-0.4); Lymphocytes Absolute Auto 2.4 X10*3/uL (1.2-4.9); Mean Corpuscular HGB Conc 36.1 g/dl (31.0-35.0); Mean Corpuscular Hemoglobin 31.6 pg (27.0-33.0); Mean Corpuscular Volume 87.6 fL (80.0-98.0); Mean Platelet Volume 9.8 fL (9.4-12.3); Monocytes Absolute Auto 0.3 X10*3/uL (0.1-1.2); Monocytes Percent Auto 3.8 % (2-11); Neutrophils Absolute Auto 5.2 x10*3/uL (2.0-8.3); Neutrophils Percent Auto 65.8 % (45-73); Platelet Count 300 X10*3/uL (160-400); Red Blood Count 4.34 X10*6/uL (4.20-5.50); Red Cell Distribution Width 12.4 % (11.0-16.0); White Blood Count 7.9 X10*3/uL (4.8-10.8)
[2023-01-31 20:55] LABS: INTERNATIONAL NORM RATIO 0.9 (0.9-1.1); Prothrombin Time 10.2 SEC (10.0-13.1)
[2023-01-31 21:05] LABS: Alanine Aminotransferase 24 U/L (0-31); Albumin Level 4.3 g/dL (3.5-5.0); Alkaline Phosphatase 88 U/L (39-117); Anion Gap 23 (12-20); Aspartate Amino Transferase 53 U/L (5-31); Bilirubin Total 0.6 mg/dL (0.0-1.0); Blood Urea Nitrogen 28 mg/dL (9-16); Calcium 9.5 mg/dL (8.4-10.2); Carbon Dioxide 22 mmol/L (22-29); Chloride 103 mmol/L (96-108); Estimated Glomerular Filt Rate > 60; Ethanol 297 mg/dL; Glucose Random 101 mg/dL (60-115); Magnesium 1.9 mg/dL (1.6-2.6); Potassium 3.7 mmol/L (3.3-5.1); Sodium 144 mmol/L (135-145); Total Protein 7.2 g/dL (6.5-8.0)
--- NOTE | 2023-01-31 21:16 | MHC.RECOVSUP ---
Patient seeking ATS for Alcohol.. No bed at the moment..
--- NOTE | 2023-01-31 21:17 | MHC.EDTECH ---
pt was changed into hospital attire vitals taken belonging list done locked in [facility] in the pod.
[2023-01-31 21:22] LABS: Amphetamine Screen Urine Not Detected (Not Detect); Barbiturates, Urine Not Detected (Not Detect); Benzodiazepines Screen Urine POSITIVE (Not Detect); Cannabinoid Screen Urine POSITIVE (Not Detect); Cocaine Screen Urine Not Detected (Not Detect); Fentanyl, urine Not Detected (Not Detect); Opiate Screen Urine Not Detected (Not Detect); Phencyclidine Screen Urine Not Detected (Not Detect)
[2023-01-31 22:23] VITALS: BP 129/87; PULSE 90; RESP 18; TEMP 37.1; O2SAT 99
[2023-02-01] MEDS: Cyclobenzaprine HCl 10 MG TABLET PO (00:04)
[2023-02-01] MEDS: OXcarbazepine 300 MG TABLET PO ×2 (00:04→10:37)
[2023-02-01] MEDS: Pregabalin 100 MG CAPSULE PO ×2 (00:04→10:37)
[2023-02-01] MEDS: Naltrexone HCl 50 MG TABLET PO (00:04)
--- NOTE | 2023-02-01 00:44 | PC.NURSE ---
pt redirected to stay in bed, pt placed on bed side monitor, notified SOFIYA Robert.
[2023-02-01 00:59] VITALS: BP 149/90; PULSE 93; RESP 18; TEMP 36.6; O2SAT 97
--- NOTE | 2023-02-01 01:19 | PC.NURSE ---
Pt home medications ordered by provider and administered for restlessness, restless legs, and daily dosing. Pt sts effective, however, pt still attempting to get up from bed and ambulate. Sitter at bedside temporarily for pt safety in response to administered medication effects.
[2023-02-01 02:00] VITALS: BP 136/84; PULSE 98; RESP 20; TEMP 36.4; O2SAT 98
--- NOTE | 2023-02-01 03:16 | PC.NURSE ---
Pt drowsy, responding to voice, intermittently sleeping. No acute behavioral or medical concerns at this time. WCTM.
[2023-02-01 04:00] VITALS: BP 140/84; PULSE 77; RESP 16; O2SAT 98
[2023-02-01 06:27] VITALS: BP 162/88; PULSE 80; RESP 16; O2SAT 100
[2023-02-01 07:31] VITALS: BP 143/80; PULSE 68; RESP 22; TEMP 36.7; O2SAT 100
[2023-02-01 09:07] VITALS: BP 160/89; PULSE 80; RESP 18; O2SAT 97
--- NOTE | 2023-02-01 09:10 | PC.NURSE ---
Alert, unable to recall events from pervious admission and why she came to the hospital. Incontinent of stool x 1. Groggy but arousabal to verbal stimulation.
--- NOTE | 2023-02-01 09:25 | PC.NURSE ---
Patient alternating between periods of wake and sleeping. Reports that she takes methadone but has not for the last two days and that is what is causing her to be like this . Unable to recall where she gets her methadone from but states she just needs a minute to think about it. Wakes from sleep startled trying to get out of bed, easily re-directible. Stating she feels
--- NOTE | 2023-02-01 09:56 | MHC.RECOVRN ---
Addendum entered by Connie Schrader RN 02/01/23 09:58: This blog writer to return to bedside when pt more alert. Original Note: This blog writer attempted to meet with pt. Unable to wake pt. Reviewed findings with ED Provider Dr. Tavera. Pt currently incontinent of stool, will need to be medically cleared/stable prior to detox bedsearch.
--- NOTE | 2023-02-01 10:15 | PC.NURSE ---
Methadone dose verified with [facility] clinic with joe millan- provider aware. Last dose given january 28 at 8:44am. January 29 dose denied d/t breathalyzer dose being x12 legal limit. Pharmacy notified of last dose- stating to reduce 87mg by 25% - (65mg), provider aware.
[2023-02-01] MEDS: Vortioxetine Hydrobromide 5 MG TABLET PO (10:37)
--- NOTE | 2023-02-01 10:39 | PC.NURSE ---
Patient alert and able to take po meds at this time. Incontinent of urine x 1. Does not want help to be changed at this time. Patient aware methadone dose has been obtained and will be ordered by provider
--- NOTE | 2023-02-01 10:49 | HE.PHANOTE ---
RE: METHADONE verified with [facility] phone [phone]. last confirmed dose 87mg January 28 @ 3874am
--- NOTE | 2023-02-01 10:57 | PC.NURSE ---
More alert, out of bed to commode, allowed bed linens to be changed. Denies pain or discomfort.
[2023-02-01] MEDS: methADONE HCl 20 MG/2 ML ORAL.CONC 65 MG PO (11:14)
--- NOTE | 2023-02-01 11:17 | PC.NURSE ---
Methadone given per order
--- NOTE | 2023-02-01 11:29 | MHC.RECOVSUP ---
Met with pt in ED22 who is here for [facility]. Pt informs she is not interested in any recovery support at this time and all she needs is her last dose letter, stating she is on 87mg of Methadone.
--- NOTE | 2023-02-01 12:48 | PC.NURSE ---
Alert and oriented. Reports staying at [facility]. Hospital transport to bring patient back to detention. Discharge paperwork reviewed with patient who verbalized understanding. IV removed, last dose letter given to patient
== END 2023-02-01 12:50 | disposition home or self-care (01) ==
PROVIDERS: Internal Medicine; Emergency Provider Emergency Medicine Emergency Medical Services
DX: F33.1 Major depressive disorder, recurrent, moderate (principal); F10.129 Alcohol abuse with intoxication, unspecified; Y90.8 Blood alcohol level of 240 mg/100 ml or more; F12.10 Cannabis abuse, uncomplicated; F17.210 Nicotine dependence, cigarettes, uncomplicated; F11.10 Opioid abuse, uncomplicated; Z71.6 Tobacco abuse counseling; Z79.899 Other long term (current) drug therapy
CPT/HCPCS: 36415; 80053; 80307; 83735; 85025; 85610; 96361; 96374; 99285; J2060